=== PATIENT | male | born 1955 | race Caucasian/White ===

== ENCOUNTER 2020-05-06 14:04 | Emergency (ER) | payer MEDICARE, OTHER ==
[~2020-05-06] VITALS: Ht 177.8 cm; Wt 70.5 kg
--- NOTE | 2020-05-06 15:12 | REP ---
CT study of the cervical spine without contrast: History: Injury in a fall. Technique: Helical scanning is acquired and overlapping 2 mm high resolution axial images were generated and reviewed at bone and soft tissue window settings. Coronal and sagittal multiplanar re-formations images are generated. CT findings: There is straightening of the normal cervical lordosis. Degenerative disc changes are noted most pronounced at C4-5 and C5-6 and C6-7 . There is a left posterior focal disc protrusion at the C5-6 . There is diffuse disc bulging at C6-7 . There is degenerative change at the articulation between the dens and the anterior arch of C1. There is no evidence of cervical spine element fracture. No skull base fracture is seen. Cervical vertebral body heights are preserved. Alignment is normal. Facet joints are normally aligned bilaterally at each cervical level on multiplanar re-formations images. There is no evidence of intraspinal or paraspinal hematoma. No extra vertebral abnormality is seen. Impression: Degenerative spondylosis changes C4-5, C5-6, and C6-7. Left posterior disc protrusion C5-6. Otherwise negative CT study of the cervical spine without contrast. No fracture seen. Electronically Signed by Gene Burton MD 05/06/2020 03:03 P
[2020-05-06] MEDS: LABETALOL 100MG/20ML VIAL IV PRN ×2 (15:24→15:52)
[2020-05-06 15:48] LABS: BASO # 0.1 10^3/uL (0.0-0.2); BASO % 0.8 % (0.0-1.0); EOS # 0.2 10^3/uL (0.0-0.5); EOS % 2.2 % (0.0-3.0); HEMATOCRIT 25.7 % (42.0-52.0); HEMOGLOBIN 9.1 g/dl (13.5-17.5); LYMPH # 1.2 10^3/uL (1.5-5.0); LYMPH % 17.1 % (24.0-44.0); MEAN CORPUSCULAR HEMOGLOBIN 38.2 pg (27.0-33.0); MEAN CORPUSCULAR HGB CONC 35.4 g/dl (32.0-36.5); MONO # 0.6 10^3/uL (0.0-0.8); MONO % 8.3 % (0.0-5.0); NEUTROPHILS # 5.1 10^3/uL (1.5-8.5); NEUTROPHILS % 71.3 % (36.0-66.0); RED BLOOD COUNT 2.38 10^6/uL (4.30-6.10); WHITE BLOOD COUNT 7.1 10^3/uL (4.0-10.0)
[2020-05-06 15:52] VITALS: BP 150/82
[2020-05-06 16:00] LABS: INR 1.55; PROTHROMBIN TIME 18.3 SECONDS (11.8-14.0)
[2020-05-06 16:01] LABS: PARTIAL THROMBOPLASTIN TIME 37.4 SECONDS (25.0-38.4)
[2020-05-06 16:12] LABS: OSMOLALITY SERUM 286 MOSM/KG (280-301)
[2020-05-06] MEDS ORDERED: NS 500 ML IV ONE (16:15)
[2020-05-06] MEDS ORDERED: NS 1,000 ML IV SCH (16:15)
[2020-05-06 16:16] LABS: PLATELET COUNT, AUTOMATED 98 10^3/uL (150-450)
[2020-05-06 16:23] LABS: ACETAMINOPHEN LEVEL 8.1 UG/ML (10.0-30.0); ALBUMIN 3.5 GM/DL (3.2-5.2); ALT/SGPT 34 U/L (12-78); BILIRUBIN,DIRECT 1.6 MG/DL (0.0-0.2); BILIRUBIN,TOTAL 2.9 MG/DL (0.2-1.0); CPK CREATINE PHOSPHOKINASE 795 U/L (39-308); ETHYL ALCOHOL (ETHANOL) 0.004 % (0.000-0.010); SALICYLATE LEVEL < 1.7 MG/DL (5.0-30.0); TOTAL PROTEIN 7.1 GM/DL (6.4-8.2)
--- NOTE | 2020-05-06 16:34 | REP ---
CT BRAIN WITHOUT CONTRAST: HISTORY: Injury in a fall. No comparison imaging. FINDINGS: Preliminary digital noc analyst images are unremarkable. The patient is edentulous. The patient is rotated to the right in the scanner. Bone window settings demonstrate an intact bony calvarium. No skull fracture is seen. There is vascular calcification in the distal internal carotid arteries bilaterally. There are bilateral subdural hematomas which appear predominantly chronic to the late subacute. However, there is a linear area of hyperdensity in the left subdural space which may reflect acute hemorrhage small in amount. There is generalized volume loss. There is no evidence of parenchymal hemorrhage. No infarct or mass lesion is seen. There is a lacunar infarct in the left basal ganglia which appears old. No acute infarction is seen. IMPRESSION: 1. Old lacunar infarct left basal ganglia. Generalized volume loss. 2. Bilateral chronic subdural hematomas. Left larger than right. 3. There is a small quantity of acute blood as a linear density in the left subdural space in the frontal region. No midline shift. Acute on chronic subdural hematoma. No parenchymal hemorrhage seen. The findings were telephoned to the referring provider at the time of this dictation. Electronically Signed by Gene Burton MD 05/06/2020 05:17 P
[2020-05-06] MEDS ORDERED: KCL 10MEQ/100ML SWI (KRUN) 10 MEQ in IV 1 EA IV ONE (17:00)
[2020-05-06 17:16] LABS: MAGNESIUM LEVEL 1.1 MG/DL (1.8-2.4)
--- NOTE | 2020-05-06 17:16 | REP ---
CHEST, SINGLE VIEW: There is no evidence of acute infiltrate. No pleural effusion is seen. The heart is normal in size. The mediastinal silhouette is unremarkable. The visualized osseous structures are intact. IMPRESSION: No acute pulmonary disease. Electronically Signed by Christoph Samano MD 05/07/2020 04:57 P
[2020-05-06] MEDS ORDERED: POTASSIUM CHLORIDE 10 MEQ SR TABLET As Ordered ONE (17:17)
[2020-05-06] MEDS ORDERED: LORazepam 2 MG/ML VIAL IV STA (17:23)
[2020-05-06] MEDS ORDERED: POTASSIUM CHLORIDE 10 MEQ SR TABLET PO ONE (17:30)
[2020-05-06 17:38] VITALS: BP 125/74
--- NOTE | 2020-05-07 09:39 | ECGEPIP ---
[facility] - ED Test Date: 2020-05-06 Pat Name: KEYON HAWK Department: Room: - Gender: Male [employer]: RAND : 1955 Requested By: FLORINA Erazo Order Number: [id number] Reading MD: Roshan Dukes Measurements Intervals [place] Rate: 119 P: -25 [place]: 122 QRS: -61 QRSD: 119 T: 16 QT: 433 QTc: 609 Interpretive Statements SINUS TACHYCARDIA POSSIBLE LEFT ATRIAL ENLARGEMENT LEFT ANTERIOR FASCICULAR BLOCK MODERATE ST DEPRESSION NO PRIORS FOR COMPARISON Electronically Signed on 05-07-2020 9:38:53 EDT by Roshan Dukes
== END 2020-05-06 17:40 | disposition short-term general hospital (02) ==
LOC: EDBD 14:04 → M ED 14:04
DX: I62.03 Nontraumatic chronic subdural hemorrhage (principal); R00.0 Tachycardia, unspecified; I44.4 Left anterior fascicular block; E87.6 Hypokalemia; W19.XXXA Unspecified fall, initial encounter; Y92.480 Sidewalk as the place of occurrence of the external cause; Y93.01 Activity, walking, marching and hiking; Y99.9 Unspecified external cause status; R29.6 Repeated falls; M47.892 Other spondylosis, cervical region; M50.222 Other cervical disc displacement at C5-C6 level; Z86.73 Personal history of transient ischemic attack (TIA), and cerebral infarction without residual deficits; Z87.891 Personal history of nicotine dependence; F10.10 Alcohol abuse, uncomplicated
CPT/HCPCS: 70450; 71045; 72125; 80047; 80076; 82550; 83735; 83930; 84443; 85025; 85049; 85055; 85610; 85730; 93005; 93041; 94760; 96361; 96374; 96375; 99285; G0480; J2060

== ENCOUNTER 2020-06-18 20:05 | Emergency (ER) | payer MEDICARE, BC ==
[2020-06-18] MEDS ORDERED: MAGNESIUM SULFATE 1GM/100ML D5W BAG (10MG/ML) ONE (21:00)
[2020-06-18] MEDS ORDERED: OXAZEPAM 15 MG CAP ONE (21:00)
[2020-06-18] MEDS ORDERED: MAGNESIUM SULFATE 1GM/100ML D5W BAG (10MG/ML) As Ordered ONE (21:31)
[2020-06-18] MEDS ORDERED: OXAZEPAM 15 MG CAP As Ordered ONE (21:31)
[2020-06-19] MEDS ORDERED: MAGNESIUM SULFATE 1GM/100ML D5W BAG (10MG/ML) As Ordered ONE (00:20)
[2020-06-19] MEDS ORDERED: MAGNESIUM SULFATE 1GM/100ML D5W BAG (10MG/ML) ONE (00:20)
[2020-06-19] MEDS ORDERED: POTASSIUM CHLORIDE 10 MEQ SR TABLET ONE (02:00)
[2020-06-19] MEDS ORDERED: POTASSIUM CHLORIDE 10 MEQ SR TABLET As Ordered ONE (02:09)
[2020-07-18 11:52] LABS: INR 1.42; PARTIAL THROMBOPLASTIN TIME 40.4 SECONDS (25.0-38.4); PROTHROMBIN TIME 17.6 SECONDS (11.8-14.0)
[2020-07-18 15:51] LABS: BASO # 0.2 10^3/uL (0.0-0.2); BASO % 1.7 % (0.0-1.0); EOS # 0.2 10^3/uL (0.0-0.5); EOS % 1.9 % (0.0-3.0); HEMOGLOBIN 8.9 g/dl (13.5-17.5); LYMPH # 2.8 10^3/uL (1.5-5.0); LYMPH % 24.5 % (24.0-44.0); MEAN CORPUSCULAR HEMOGLOBIN 36.8 pg (27.0-33.0); MEAN CORPUSCULAR HGB CONC 34.2 g/dl (32.0-36.5); MEAN CORPUSCULAR VOLUME 107.4 fl (80.0-96.0); MONO # 0.7 10^3/uL (0.0-0.8); MONO % 5.7 % (0.0-5.0); NEUTROPHILS # 7.5 10^3/uL (1.5-8.5); NEUTROPHILS % 65.5 % (36.0-66.0); PLATELET COUNT, AUTOMATED 311 10^3/uL (150-450); RED BLOOD COUNT 2.42 10^6/uL (4.30-6.10); WHITE BLOOD COUNT 11.5 10^3/uL (4.0-10.0)
--- NOTE | 2020-07-31 16:57 | ECGEPIP ---
SINUS TACHYCARDIA LAD LAE MOD. IVCD SEE SCANNED DOWNTIME REPORT MTDD
[2020-08-02 12:41] LABS: ALBUMIN 3.1 GM/DL (3.2-5.2); ALT/SGPT 45 U/L (12-78); BILIRUBIN,TOTAL 2.1 MG/DL (0.2-1.0); BLOOD UREA NITROGEN 9 MG/DL (7-18); CALCIUM LEVEL 7.4 MG/DL (8.8-10.2); CARBON DIOXIDE LEVEL 17 MEQ/L (21-32); CHLORIDE LEVEL 111 MEQ/L (98-107); CK-MB VALUE MASS 11.7 NG/ML (<3.6); CPK CREATINE PHOSPHOKINASE 238 U/L (39-308); CREATININE FOR GFR 1.04 MG/DL (0.70-1.30); ETHYL ALCOHOL (ETHANOL) 0.313 % (0.000-0.010); GLOMERULAR FILTRATION RATE > 60.0 (>49); GLUCOSE, FASTING 112 MG/DL (70-100); LIPASE 335 U/L (73-393); MB/CK RELATIVE INDEX 4.92 (< OR =4); POTASSIUM SERUM 3.2 MEQ/L (3.5-5.1); SODIUM LEVEL 142 MEQ/L (136-145); TOTAL PROTEIN 6.6 GM/DL (6.4-8.2); TROPONIN I < 0.02 NG/ML (< 0.10)
== END 2020-06-19 02:30 | disposition home or self-care (01) ==
LOC: M ED 20:05
DX: F10.129 Alcohol abuse with intoxication, unspecified (principal); D63.8 Anemia in other chronic diseases classified elsewhere; E83.42 Hypomagnesemia; E87.6 Hypokalemia; R00.0 Tachycardia, unspecified; R94.31 Abnormal electrocardiogram [ECG] [EKG]; I44.4 Left anterior fascicular block; M54.9 Dorsalgia, unspecified; F17.200 Nicotine dependence, unspecified, uncomplicated
CPT/HCPCS: 71046; 80048; 80076; 82550; 82553; 83690; 83735; 84484; 85025; 85610; 85730; 86850; 86900; 86901; 93005; 96361; 96374; 96376; 99285; G0480; J3475

== ENCOUNTER 2020-07-12 17:22 | Emergency (ER) | payer MEDICARE, BC ==
[2020-07-12 18:09] LABS: BASO # 0.1 10^3/uL (0.0-0.2); BASO % 0.9 % (0.0-1.0); EOS % 0.6 % (0.0-3.0); HEMATOCRIT 21.3 % (42.0-52.0); HEMOGLOBIN 7.2 g/dl (13.5-17.5); LYMPH # 1.8 10^3/uL (1.5-5.0); LYMPH % 28.1 % (24.0-44.0); MEAN CORPUSCULAR HEMOGLOBIN 35.3 pg (27.0-33.0); MEAN CORPUSCULAR HGB CONC 33.8 g/dl (32.0-36.5); MEAN CORPUSCULAR VOLUME 104.4 fl (80.0-96.0); MONO # 0.6 10^3/uL (0.0-0.8); MONO % 8.7 % (0.0-5.0); NEUTROPHILS # 3.9 10^3/uL (1.5-8.5); NEUTROPHILS % 61.1 % (36.0-66.0); PLATELET COUNT, AUTOMATED 209 10^3/uL (150-450); RED BLOOD COUNT 2.04 10^6/uL (4.30-6.10); WHITE BLOOD COUNT 6.5 10^3/uL (4.0-10.0)
[2020-07-12 18:31] LABS: INR 1.94; PROTHROMBIN TIME 22.6 SECONDS (11.8-14.0)
[2020-07-12 18:32] LABS: PARTIAL THROMBOPLASTIN TIME 43.3 SECONDS (25.0-38.4)
[2020-07-12 18:33] LABS: OSMOLALITY SERUM 287 MOSM/KG (280-301)
[2020-07-12 18:45] LABS: ACETAMINOPHEN LEVEL 177.6 UG/ML (10.0-30.0); ALBUMIN 2.7 GM/DL (3.2-5.2); ALT/SGPT 29 U/L (12-78); BILIRUBIN,DIRECT 2.1 MG/DL (0.0-0.2); BILIRUBIN,TOTAL 3.2 MG/DL (0.2-1.0); BLOOD UREA NITROGEN 21 MG/DL (7-18); CALCIUM LEVEL 6.6 MG/DL (8.8-10.2); CARBON DIOXIDE LEVEL 20 MEQ/L (21-32); CHLORIDE LEVEL 103 MEQ/L (98-107); CK-MB VALUE MASS 5.7 NG/ML (<3.6); CPK CREATINE PHOSPHOKINASE 219 U/L (39-308); CREATININE FOR GFR 2.29 MG/DL (0.70-1.30); ETHYL ALCOHOL (ETHANOL) < 0.003 % (0.000-0.010); GLOMERULAR FILTRATION RATE 30.5 (>49); GLUCOSE, FASTING 108 MG/DL (70-100); POTASSIUM SERUM 2.1 MEQ/L (3.5-5.1); SALICYLATE LEVEL < 1.7 MG/DL (5.0-30.0); SODIUM LEVEL 139 MEQ/L (136-145); TROPONIN I < 0.02 NG/ML (< 0.10)
--- NOTE | 2020-07-12 19:03 | REPVR ---
PROCEDURE INFORMATION: Exam: CT Head Without Contrast Exam date and time: 07/12/2020 6:20 PM Age: 65 years old Clinical indication: Altered mental status/memory loss; Confusion or disorientation TECHNIQUE: Imaging protocol: Computed tomography of the head without contrast. Radiation optimization: All CT scans at this facility use at least one of these dose optimization techniques: automated exposure control; mA and/or kV adjustment per patient size (includes targeted exams where dose is matched to clinical indication); or iterative reconstruction. COMPARISON: CT Head without contrast 05/06/2020 2:32 PM FINDINGS: Brain: Predominantly hypodense bilateral cerebral convexity subdural hematomas are again demonstrated measuring approximately 7 mm in thickness. New, separate areas of trace left frontal and left parietal hyperdense hemorrhage. New, trace right parietal hyperdense hemorrhage. No evolving transcortical infarction. No intracranial mass effect. The brain demonstrates generalized volume loss. Chronic lacunar infarct is again demonstrated in the left internal capsule. Ventricles: No ventriculomegaly. Bones/joints: No acute fracture. Sinuses: Mastoid air cells: Visualized mastoid air cells are well aerated. Soft tissues: Unremarkable. IMPRESSION: 1. A trace amount of new hyperdense acute/subacute appearing subdural hemorrhage within bilateral cerebral convexity fluid collections. 2. Bilateral predominantly chronic cerebral convexity subdural hematomas are otherwise similar to the prior study. Electronically signed by: Zeny Holloway On 07/12/2020 19:02:40 PM
[2020-07-12] MEDS ORDERED: ACETYLCYSTEINE IV ONE ×3 (19:15→21:00)
[2020-07-12] MEDS ORDERED: KCL 10MEQ/100ML SWI (KRUN) 10 MEQ in IV 1 EA IV ONE ×2 (19:15→21:30)
[2020-07-12] MEDS ORDERED: D5W IV ONE ×3 (19:15→21:00)
[2020-07-12 19:16] LABS: MAGNESIUM LEVEL 0.9 MG/DL (1.8-2.4)
[2020-07-12] MEDS ORDERED: MAG SULF 1GM/100ML (MAG RUN) 1 GM in IV 1 EA IV ONE (19:45)
[2020-07-12 21:49] VITALS: BP 136/70
--- NOTE | 2020-07-29 11:03 | ECGEPIP ---
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
--- NOTE | 2020-08-08 16:46 | REP ---
PORTABLE CHEST X-RAY: HISTORY: Altered mental status. COMPARISON: 06/18/20 FINDINGS: Mediastinum and cardiac silhouette are within normal limits and stable. Lung [place] are clear. No focal consolidation, effusion or pneumothorax. Skeletal structures are intact. IMPRESSION: Stable chest x-ray. No acute cardiopulmonary process. MTDD
== END 2020-07-12 21:54 | disposition short-term general hospital (02) ==
LOC: EDBD 17:22 → M ED 17:22
DX: S06.5X0A Traumatic subdural hemorrhage without loss of consciousness, initial encounter (principal); T39.1X1A Poisoning by 4-Aminophenol derivatives, accidental (unintentional), initial encounter; E83.42 Hypomagnesemia; E87.6 Hypokalemia; F10.10 Alcohol abuse, uncomplicated; X58.XXXA Exposure to other specified factors, initial encounter; Y92.9 Unspecified place or not applicable; Y93.9 Activity, unspecified; Y99.9 Unspecified external cause status
CPT/HCPCS: 36556; 70450; 71045; 80048; 80076; 82140; 82550; 82553; 83605; 83735; 83930; 84443; 84484; 85025; 85610; 85730; 86850; 86900; 86901; 93005; 93041; 94760; 96365; 96368; 99291; G0480; J0132; J3475